=== PATIENT | female | born 1945 | race Two or more races ===

== ENCOUNTER 2024-07-17 18:10 | Emergency (ER) | payer OTHER ==
[~2024-07-17] VITALS: Ht 165.1 cm; Wt 63.5 kg
[2024-07-17] MEDS ORDERED: KETOROLAC TROMETHAMINE 30 MG VIAL IM ONE (19:45)
[2024-07-17] MEDS ORDERED: TETANUS & DIPHTHERIA TOX,ADULT 0.5 ML VIAL IM ONE (19:45)
[2024-07-17] MEDS ORDERED: LIDOCAINE HCL 1% 10ML VIAL PERCUT ONE (19:45)
[2024-07-17] MEDS ORDERED: CEFTRIAXONE SODIUM 1,000 MG VIAL IM ONE (19:45)
[2024-07-17] MEDS ORDERED: CEFTRIAXONE SODIUM 1,000 MG VIAL ONE (19:54)
[2024-07-17] MEDS ORDERED: LIDOCAINE HCL 1% 10ML VIAL ONE (19:54)
[2024-07-17] MEDS ORDERED: KETOROLAC TROMETHAMINE 30 MG VIAL ONE (19:54)
[2024-07-17] MEDS ORDERED: TETANUS DIPHTHERIA TOX. ADSOR 5 ML VIAL IM ONE (19:54)
[2024-07-17] MEDS ORDERED: CEPHALEXIN750 MG PO (21:45)
[2024-07-17] MEDS ORDERED: PEPCID AC20 MG PO (21:45)
== END 2024-07-17 22:05 | disposition home or self-care (01) ==
LOC: ER 18:10
DX: S01.81XA Laceration without foreign body of other part of head, initial encounter (principal); W18.39XA Other fall on same level, initial encounter; Y93.K1 Activity, walking an animal; Y92.89 Other specified places as the place of occurrence of the external cause; Y99.9 Unspecified external cause status; I10 Essential (primary) hypertension

== ENCOUNTER 2024-07-27 08:28 | Emergency (ER) | payer OTHER ==
[~2024-07-27] VITALS: Ht 170.2 cm; Wt 59.0 kg
[~2024-07-27 08:28] MED LIST: CEPHALEXIN750 MG PO; PEPCID AC20 MG PO
== END 2024-07-27 09:42 | disposition home or self-care (01) ==
LOC: ER 08:30
DX: Z48.02 Encounter for removal of sutures (principal)